=== PATIENT | female | born 1955 | race Caucasian/White ===

== ENCOUNTER 2018-12-28 21:56 | Emergency (ER) | payer SELFPAY ==
[~2018-12-28] VITALS: Ht 156.8 cm; Wt 93.0 kg
[2018-12-28] MEDS ORDERED: NITROGLYCERIN 0.4 MG SL TABS BTL 25'S SL ONE (22:14)
[2018-12-28] MEDS ORDERED: NITROGLYCERIN 0.4 MG SL TABS BTL 25'S SL PRN (22:15)
--- NOTE | 2018-12-28 22:22 | ED Dyspnea ---
General Chief Complaint: Respiratory Problems Stated Complaint: LT UNDER ARM PAIN, SOB History of Present Illness Date Seen by Provider: Dec 28, 2018 Time Seen by Provider: 22:08 This is a 63-year-old female with a history of atrial fibrillation on Coumadin, hypertension, here with shortness of breath and pain below the left axilla that began at rest about 8 PM tonight. Without intervention the chest discomfort has mostly resolved. Patient has felt some or shortness of breath with episodes of paroxysmal atrial fibrillation in the past, she never felt palpitations tonight , no lightheadedness, no diaphoresis or nausea. No weakness or numbness or tingling in the extremities. No leg swelling. Last INR check last week was 2.0. Allergies and Home Medications Allergies Coded Allergies: cephalexin (Verified Allergy, Unknown, 12/28/18) procaine (Verified Allergy, Unknown, 12/28/18) Home Medications Hydrochlorothiazide 12.5 Mg Cap, 6.25 MG PO DAILY, (Reported) Losartan Potassium 100 Mg Tablet, 100 MG PO DAILY, (Reported) Warfarin Sodium 5 Mg Tablet, 5 MG PO 3 times per week, (Reported) Warfarin Sodium 2.5 Mg Tablet, 2.5 MG PO 4 times per week, (Reported) Patient Home Medication List Home Medication List Reviewed: Yes Review of Systems Review of Systems Constitutional: no symptoms reported EENTM: no symptoms reported Respiratory: see HPI Cardiovascular: see HPI Gastrointestinal: no symptoms reported Genitourinary: no symptoms reported Musculoskeletal: no symptoms reported Skin: no symptoms reported Psychiatric/Neurological: No Symptoms Reported Endocrine: No Symptoms Reported Hematologic/Lymphatic: No Symptoms Reported Past [id number] Hx Patient Social History Recent Foreign Travel: No Contact w/Someone Who Travel: No Physical Exam Vital Signs Vital Signs - First Documented 12/28/18 22:00 Temp 99.0 Pulse 73 Resp 13 B/P (MAP) 180/98 (125) Pulse Ox 96 O2 Flow Rate 2.00 Capillary Refill : Height, Weight, BMI Height: '" Weight: lbs. oz. kg; BMI Method: General Appearance: No Apparent Distress HEENT: Normal ENT Inspection Neck: Supple; No JVD Respiratory: Lungs Clear Cardiovascular: Regular Rate, Rhythm, No Murmur, Normal Peripheral Pulses; No Friction Rub Gastrointestinal: Non Tender, Soft Extremity: Other (mild symmetrical nonpitting lower extremity edema) Neurologic/Psychiatric: Alert, Oriented x3, No Motor/Sensory Deficits, Normal Mood/Affect Skin: Warm/Dry Progress/Results/Core Measures Results/Orders Lab Results Laboratory Tests Test 12/28/18 22:17 12/29/18 00:17 Range/Units White Blood Count 7.8 4.3-11.0 10^3/uL Red Blood Count 4.76 4.35-5.85 10^6/uL Hemoglobin 13.6 11.5-16.0 G/DL Hematocrit 42 35-52 % Mean Corpuscular Volume 88 80-99 FL Mean Corpuscular Hemoglobin 29 25-34 PG Mean Corpuscular Hemoglobin Concent 32 32-36 G/DL Red Cell Distribution Width 13.2 10.0-14.5 % Platelet Count 230 130-400 10^3/uL Mean Platelet Volume 11.3 H 7.4-10.4 FL Neutrophils (%) (Auto) 58 42-75 % Lymphocytes (%) (Auto) 30 12-44 % Monocytes (%) (Auto) 9 0-12 % Eosinophils (%) (Auto) 2 0-10 % Basophils (%) (Auto) 1 0-10 % Neutrophils # (Auto) 4.5 1.8-7.8 X 10^3 Lymphocytes # (Auto) 2.3 1.0-4.0 X 10^3 Monocytes # (Auto) 0.7 0.0-1.0 X 10^3 Eosinophils # (Auto) 0.2 0.0-0.3 10^3/uL Basophils # (Auto) 0.1 0.0-0.1 10^3/uL Prothrombin Time 19.3 H 12.2-14.7 SEC INR Comment 1.6 H 0.8-1.4 Activated Partial Thromboplast Time 34 24-35 SEC Sodium Level 142 135-145 MMOL/L Potassium Level 3.9 3.6-5.0 MMOL/L Chloride Level 103 98-107 MMOL/L Carbon Dioxide Level 24 21-32 MMOL/L Anion Gap 15 H 5-14 MMOL/L Blood Urea Nitrogen 19 H 7-18 MG/DL Creatinine 0.74 0.60-1.30 MG/DL Estimat Glomerular Filtration Rate > 60 BUN/Creatinine Ratio 26 Glucose Level 107 H 70-105 MG/DL Calcium Level 10.6 H 8.5-10.1 MG/DL Corrected Calcium 10.2 H 8.5-10.1 MG/DL Total Bilirubin 0.6 0.1-1.0 MG/DL Aspartate Amino Transf (AST/SGOT) 15 5-34 U/L Alanine Aminotransferase (ALT/SGPT) 9 0-55 U/L Alkaline Phosphatase 92 40-136 U/L Troponin T < 6 < 6 <=10 NG/L Pro-B-Type Natriuretic Peptide 148.1 H <75.0 PG/ML Total Protein 7.8 6.4-8.2 GM/DL Albumin 4.5 3.2-4.5 GM/DL My Orders Orders - SHENA MCCURDY DO Cbc With Automated Diff (12/28/18 22:05) Chest 1 View Ap/Pa Only (12/28/18 22:05) Ekg Tracing (12/28/18 22:05) Comprehensive Metabolic Panel (12/28/18 22:05) Protime With Inr (12/28/18 22:05) Partial Thromboplastin Time (12/28/18 22:05) Monitor-Rhythm Ecg Trace Only (12/28/18 22:05) Saline Lock/Iv-Start (12/28/18 22:05) Troponin T (12/28/18 22:05) Probnp Fs (12/28/18 22:05) Nitroglycerin 0.4 Mg Btl 25's (Nitrostat (12/28/18 22:15) Nitroglycerin 0.4 Mg Btl 25's (Nitrostat (12/28/18 22:14) Troponin T (12/29/18 00:33) Aspirin Chewable Tablet (Baby Aspirin Ch (12/29/18 01:12) Medications Given in ED Current Medications Medications Dose Ordered Sig/Russel Route Start Time Stop Time Status Last Admin Dose Admin Nitroglycerin 0.4 mg STK-MED ONCE SL 12/28/18 22:14 12/28/18 22:15 DC 12/28/18 22:16 0.4 MG Vital Signs/I&O 12/28/18 22:00 Temp 99.0 Pulse 73 Resp 13 B/P (MAP) 180/98 (125) Pulse Ox 96 O2 Flow Rate 2.00 Progress Progress Note #1: Progress Note This is a 63-year-old female with a history of hypertension, atrial fibrillation , here for discomfort below the left arm and dyspnea. No pleuritic pain. No unilateral leg swelling. No history of blood clots. We will check an INR to ensure that it is therapeutic. Last stress test was about a year ago and was normal. Patient is hypertensive and we will treat with nitroglycerin and recheck symptoms and blood pressure. ECG is nonischemic. Await chest x-ray, troponin, BNP, basic labs. Progress Note #2: Progress Note Blood pressure 135/67, heart rate of 69 after 1 sublingual nitroglycerin. Pain and dyspnea have completely resolved. We will continue to monitor. Progress Note #3: Progress Note I did offer patient admission for ACS rule out. Her preference was to check the repeat troponin and follow-up with her abstract writer tomorrow which is reasonable. Her blood pressure remained improved and her symptoms did not recur at any time during the ED course. She will return to the emergency department or call 911 for any recurrence of her symptoms or for any concerning change. EKG : Comment 2206: Normal sinus rhythm rate of 73. Left axis deviation. Small Q waves in V1 and aVL. RSR prime in lead V2 with associated T-wave inversion in that lead. Diagnostic Imaging Diagonstic Imaging: Xray Comments EP interpretation: Trachea is midline, no obvious bony abnormalities, cardiomediastinal silhouette is normal, diaphragmatic borders and costophrenic angles are unremarkable, no pneumothoraces, there is prominence of the interstitium bilaterally. Reviewed: Reviewed by Me Departure Impression Primary Impression: Chest pain Additional Impressions: Dyspnea Hypertensive urgency Disposition: 01 HOME, SELF-CARE Condition: Stable Departure-Patient Inst. Referrals: ANAND GILMORE MD (PCP) Primary Care Physician Patient Instructions: Shortness of Breath (Dyspnea) (DC) SHENA MCCURDY DO Dec 28, 2018 22:22
[2018-12-28 22:28] LABS: BASOPHILS % (AUTO) 1 % (0-10); EOSINOPHILS % (AUTO) 2 % (0-10); HEMATOCRIT 42 % (35-52); HEMOGLOBIN 13.6 G/DL (11.5-16.0); LYMPHOCYTES # (AUTO) 2.3 X 10^3 (1.0-4.0); LYMPHOCYTES % (AUTO) 30 % (12-44); MEAN CORPUSCULAR HEMOGLOBIN 29 PG (25-34); MEAN CORPUSCULAR HGB CONC 32 G/DL (32-36); MEAN CORPUSCULAR VOLUME 88 FL (80-99); MEAN PLATELET VOLUME 11.3 FL (7.4-10.4); MONOCYTES % (AUTO) 9 % (0-12); NEUTROPHILS # (AUTO) 4.5 X 10^3 (1.8-7.8); NEUTROPHILS % (AUTO) 58 % (42-75); PLATELET COUNT 230 10^3/uL (130-400); RED CELL DISTRIBUTION WIDTH 13.2 % (10.0-14.5); WHITE BLOOD COUNT 7.8 10^3/uL (4.3-11.0)
[2018-12-28 22:29] LABS: BASOPHILS # (AUTO) 0.1 10^3/uL (0.0-0.1); EOSINOPHILS # (AUTO) 0.2 10^3/uL (0.0-0.3); MONOCYTES # (AUTO) 0.7 X 10^3 (0.0-1.0)
[2018-12-28 22:36] LABS: INR 1.6 (0.8-1.4); PROTHROMBIN TIME PATIENT 19.3 SEC (12.2-14.7)
[2018-12-28 22:42] LABS: ALANINE AMINOTRANSFERASE 9 U/L (0-55); ALKALINE PHOSPHATASE 92 U/L (40-136); BILIRUBIN,TOTAL 0.6 MG/DL (0.1-1.0); BUN/CREATININE RATIO 26; CALCIUM 10.6 MG/DL (8.5-10.1); CARBON DIOXIDE 24 MMOL/L (21-32); CHLORIDE 103 MMOL/L (98-107); CREATININE SERUM 0.74 MG/DL (0.60-1.30); GFR ESTIMATED > 60; GLUCOSE 107 MG/DL (70-105); POTASSIUM 3.9 MMOL/L (3.6-5.0); SODIUM 142 MMOL/L (135-145)
[2018-12-28 22:43] LABS: ALBUMIN 4.5 GM/DL (3.2-4.5); TOTAL PROTEIN 7.8 GM/DL (6.4-8.2)
[2018-12-28] MEDS ORDERED: LOSA100T3 PO (23:49)
[2018-12-28] MEDS ORDERED: DILT240C96 PO (23:49)
[2018-12-28] MEDS ORDERED: HCTZ12.5T PO (23:49)
[2018-12-28] MEDS ORDERED: WARF5TAB PO (23:49)
[2018-12-28] MEDS ORDERED: WARF2.5T PO (23:49)
[2018-12-29] MEDS ORDERED: ASPIRIN 81 MG CHEW (CHILDREN'S ASA) PO STA (01:12)
[2018-12-29 01:27] VITALS: BP 161/65
--- NOTE | 2018-12-29 08:16 | Diagnostic Imaging Report ---
Indication: Shortness of air and left axillary pain. Time of exam: 10:05 PM No prior studies are available for comparison. The heart size is normal. The pulmonary vascularity is unremarkable. The lungs are clear. No infiltrate, effusion or pneumothorax is detected. Impression: No acute cardiopulmonary process is detected. Dictated by: Dictated on workstation # [id number]
== END 2018-12-29 01:27 | disposition home or self-care (01) ==
LOC: EDUNIT# 21:56 → ER FS 21:58
DX: R07.9 Chest pain, unspecified (principal); R06.00 Dyspnea, unspecified; I16.0 Hypertensive urgency; I48.91 Unspecified atrial fibrillation; Z79.01 Long term (current) use of anticoagulants; Z88.1 Allergy status to other antibiotic agents; Z88.4 Allergy status to anesthetic agent
CPT/HCPCS: 36415; 71045; 80053; 83880; 84484; 85025; 85610; 85730; 93041

== ENCOUNTER → 2023-01-26 | Outpatient (CLI) | payer SELFPAY ==
[~2023-01-26] MED LIST: DILT240C96 PO; HCTZ12.5T PO; LOSA100T4 PO; WARF2.5T PO; WARF5TAB2 PO
--- NOTE | 2023-01-26 17:40 | Diagnostic Imaging Report ---
EXAMINATION: Chest 2 view HISTORY: Preoperative exam COMPARISON: 12/28/2018 FINDINGS: The lungs are clear without edema or pneumonia. No pleural effusion or pneumothorax. Heart size is normal. IMPRESSION: 1. Clear lungs. Dictated by: Dictated on workstation # [id number]
== END ==
LOC: RAD FS 14:15
PROVIDERS: ATTEND Orthopaedic Surgery
DX: Z01.812 Encounter for preprocedural laboratory examination (principal); M17.12 Unilateral primary osteoarthritis, left knee; M24.19 Other articular cartilage disorders, other specified site; M19.09 Primary osteoarthritis, other specified site
CPT/HCPCS: 71046